=== PATIENT | male | born 1940 | race Caucasian/White ===

== ENCOUNTER 2016-09-28 09:08 | Outpatient (CLI) | payer MEDICARE, OTHER ==
[2016-09-28 09:29] LABS: BASOPHILS % 0.4 (0.0-1.5); EOSINOPHILS % 2.4 % (0.0-6.8); MEAN CORPUSCULAR VOLUME 100.7 fl (80.0-100.0); MONOCYTES % 5.3 % (0.0-11.0); NEUTROPHILS # 4.9 # k/uL (1.4-7.7)
[2016-09-28 10:06] LABS: eGFR (African) > 60; eGFR (Non-African) > 60
== END 2016-09-28 09:10 ==
LOC: LAB 09:08
PROVIDERS: ATTEND Family Medicine
DX: I10 Essential (primary) hypertension (principal); E78.00 Pure hypercholesterolemia, unspecified
CPT/HCPCS: 36415; 80048; 80061; 85025

== ENCOUNTER 2017-11-05 09:35 | Outpatient (CLI) | payer MEDICARE, OTHER ==
[2017-11-05 10:10] LABS: BASOPHILS % 0.1 (0.0-1.5); EOSINOPHILS % 1.1 % (0.0-6.8); MEAN CORPUSCULAR HEMOGLOBIN 32.2 pg (28.0-34.0); MEAN CORPUSCULAR VOLUME 98.6 fl (80.0-100.0); MONOCYTES % 2.5 % (0.0-11.0); NEUTROPHILS # 12.5 # k/uL (1.4-7.7)
[2017-11-05 19:31] LABS: TOTAL PROTEIN 6.3 g/dL (6.0-8.5)
== END 2017-11-05 09:36 ==
LOC: LAB 09:35
PROVIDERS: ATTEND Family Medicine
DX: I10 Essential (primary) hypertension (principal); E78.00 Pure hypercholesterolemia, unspecified
CPT/HCPCS: 36415; 80053; 80061; 85025

== ENCOUNTER 2018-12-24 10:25 | Emergency (ER) | payer MEDICARE, OTHER ==
--- NOTE | 2018-12-24 10:40 | ED Physician Documentation ---
General Adult - HISTORIAN Historian: patient - HPI Stated Complaint: fall and laceration on head - LOC Chief Complaint: Fall Onset: hours (2? Pt is not sure over an hour per his report ) Timing: better Severity: mild Further Comments: yes (He states he was getting up from a sitting position at home and he did feel like he might pass out - after this he then remembers waking up sitting on the floor. He is not noting any other concerns. He denies any recent illness. He did eat this am and he notes eating and drinking normally. Denies a fever. No pain. He went to the [facility] and he was then told to come the ER) Last known Well Code/Unknown Code: Unknown - ROS CONST: no problems EYES/ENT: none CVS/RESP: none GI/: none MS/SKIN/LYMPH: none NEURO/PSYCH: dizziness (prior to fall. No current dizziness ). denies: headache, fainting, tingling, numbness, difficulty walking, difficulty with speech, anxiety, depression - PAST HX Past History: hypertension Immunizations: UTD Allergies/Adverse Reactions: Allergies Allergy/AdvReac Type Severity Reaction Status Date / Time No Known Drug Allergies Allergy Unverified 12/24/18 10:45 - SOCIAL HX Smoking History: non-smoker Alcohol Use: none Drug Use: none - FAMILY HX Family History: No - REVIEWED ASSESSMENTS Nursing Assessment Reviewed: Yes Vitals Reviewed: Yes Progress - Progress Progress: 1130: discussed case with Dr Shine. Unable to admit obs for telemetry - no current telemetry options in pt. He is not symptomatic. Will attempt Metoprolol and monitor pt - Dr Shine will see him Saturday at 1000 am for follow up also will start on Eliquis DG 1230: pt had told nurse his back was hurting. Discussed with pt again due to him denying pain to myself in back or neck. He states "sometimes it does and he goes to the Chiropractor" No pain currently. He has no other complaints. Scalp lac was closed with dermabond. Discussed meds and position changes slowly. He is aware and agreeable. DG 1300: discussed case with Dr Shine about med changes. Pt is aware DG Follow up with Dr Shine Saturday @ 10 DG General Adult Physical Exam - PHYSICAL EXAM GENERAL APPEARANCE: no distress EENT: eye inspection normal, ENT inspection normal, pharynx normal, no signs of dehydration, TANK NECK: normal inspection RESPIRATORY: no resp distress, chest non-tender, breath sounds normal CVS: reg rate & rhythm, heart sounds normal, equal pulses ABDOMEN: soft, normal bowel sounds, no distension, non-tender BACK: normal inspection SKIN: warm/dry, other (laceration on posterior of scalp approx 4 cm. Not currently bleeding. No other areas of injury noted ) EXTREMITIES: non-tender, normal range of motion, no evidence of injury, no edema NEURO: oriented X3, CN's nml as tested, motor nml, sensation nml, mood/affect nml, cognition normal Discharge Clincal Impression: Afib Qualifiers: Atrial fibrillation type: unspecified Qualified Code(s): I48.91 - Unspecified atrial fibrillation Referrals: Shaheen Shine MD [Primary Care Provider] - 2 Days Comments: 1. STOP YOUR NORVASC 2. Decrease HCTZ to 25 mg daily 3. ADD: Metoprolol 25 mg BID 4. ADD: eliquis: 5 mg BID 5. Change position slowly as discussed 6. See Dr Shine Saturday at 10 am 7. Return to ER for any increasing concerns Condition: Stable Disposition: 01 HOME, SELF-CARE Decision to Admit: NO Date of Decison to Admit: 12/24/18 Decision Time: 13:16
[2018-12-24 10:53] LABS: BASOPHILS % 0.4 % (0.0-1.5); NEUTROPHILS # 10.3 # k/uL (1.4-7.7)
[2018-12-24] MEDS ORDERED: 0.9 % SODIUM CHLORIDE 1,000 ML IV ONE ×2 (11:02→11:28)
[2018-12-24 11:05] LABS: eGFR (Non-African) > 60
[2018-12-24] MEDS ORDERED: METOPROLOL TARTRATE 5 MG/5 ML VIAL IV ONE ×2 (11:20→11:22)
[2018-12-24] MEDS ORDERED: APIXABAN 5 MG TABLET PO ONE (11:28)
[2018-12-24 14:04] VITALS: BP 103/62
[2018-12-24 14:21] LABS: APPEARANCE,URINE CLEAR (CLEAR); COLOR,URINE YELLOW (YELLOW); OCCULT BLOOD,URINE 2+ (NEGATIVE); PH URINE 6.5 (5.0 - 8.0); UROBILINOGEN URINE 0.2 Eu (0.2-1.0)
--- NOTE | 2018-12-25 09:27 | Diagnostic Imaging Report ---
KATHY GEE [facility] [address] [facility], [facility] [address] [place], [place]. [address] Report Submission Date: Dec 24, 2018 11:07:51 AM CDT Patient Study Name: FRANCISCO CASTILLO Date: Dec 24, 2018 10:52:47 AM CDT Modality Type: CT\SR Gender: M Description: CT HEAD W/O : 40 Institution: [facility] Physician: KATHY GEE Examination: CT head without contrast History: Fall Comparison exam: None available Technique: Noncontrast head CT protocol. Findings: Ventricles and sulci are mildly prominent. Cerebrocerebellar parenchyma demonstrates periventricular low attenuation consistent with small vessel disease. No evidence for parenchymal hemorrhage. No evidence for mass or mass effect. No midline shift. No extra axial fluid collections. Partial visualization of the paranasal sinuses, mastoid air cells, orbits, skull and scalp without gross irregularity. Impression: Age related changes. No acute parenchymal process. No hemorrhage. Electronically signed on Dec 24, 2018 11:07:51 AM CDT by: Jb Duong [facility] CENTERSusie
== END 2018-12-24 13:25 | disposition home or self-care (01) ==
LOC: ED 10:25
DX: S01.91XA Laceration without foreign body of unspecified part of head, initial encounter (principal); W19.XXXA Unspecified fall, initial encounter; Y92.009 Unspecified place in unspecified non-institutional (private) residence as the place of occurrence of the external cause; Y99.8 Other external cause status
CPT/HCPCS: 70450; 80053; 81002; 85025; 85610; 96361; 96374; 96376; 99284; J3490; S1016